=== PATIENT | female | born 1955 | race Caucasian/White ===

== ENCOUNTER 2016-07-04 22:32 | Emergency (ER) | payer BC ==
[2016-07-05] MEDS ORDERED: DILAUDID 1 MG/ML AMP ONE (01:11)
[2016-07-05] MEDS ORDERED: ONDANSETRON 4 MG VIAL ONE (01:12)
[2016-07-05] MEDS ORDERED: CEPHALEXIN 250 MG CAP ONE (01:52)
== END 2016-07-05 02:57 | disposition home or self-care (01) ==
LOC: ER 22:32
DX: N30.00 Acute cystitis without hematuria (principal)
CPT/HCPCS: 81001; 87088; 96372